=== PATIENT | male | born 1960 | race Caucasian/White ===

== ENCOUNTER 2023-02-09 07:39 | Day surgery (SDC) | payer BC ==
[2023-02-09] MEDS ORDERED: Glycopyrrolate 0.2 MG/ML 5 ML MDV IV ONE (07:40)
[2023-02-09] MEDS ORDERED: Lidocaine 2% 5 ML SDV IV ONE (07:40)
[2023-02-09] MEDS ORDERED: Propofol 200 MG/20 ML SDV IV ONE (07:40)
[2023-02-09] MEDS ORDERED: Sodium Chloride 0.9% 10 ML Syringe FLUSH PRN (07:45)
[2023-02-09] MEDS ORDERED: Lactated Ringers 1,000 ML IV SCH (07:45)
[2023-02-09] MEDS ORDERED: Simethicone Drops 40 MG/0.6 ML 30 ML Bottle PO ONE (09:29)
== END 2023-02-09 10:48 | disposition home or self-care (01) ==
LOC: FB.SDS 07:39
PROVIDERS: ATTEND Surgery
DX: Z12.11 Encounter for screening for malignant neoplasm of colon (principal); D12.6 Benign neoplasm of colon, unspecified; K57.30 Diverticulosis of large intestine without perforation or abscess without bleeding; G47.30 Sleep apnea, unspecified; Z80.0 Family history of malignant neoplasm of digestive organs
CPT/HCPCS: 00811; 88305; A9270-GY; J2704; J3490; J7120